=== PATIENT | female | born 1975 | race Caucasian/White ===

== ENCOUNTER 2021-11-10 10:23 | Outpatient (CLI) | payer OTHER | END 2021-11-10 10:25 | disposition home or self-care (01) | LOC: NUCLEAR 10:23 | PROVIDERS: ATTEND Podiatrist | DX: M84.374A Stress fracture, right foot, initial encounter for fracture (principal) | CPT/HCPCS: 78315; A9503 ==

== ENCOUNTER 2022-01-12 13:42 | Outpatient (CLI) | payer OTHER | END 2022-01-12 13:56 | disposition home or self-care (01) | LOC: RAD 13:42 | PROVIDERS: ATTEND Podiatrist | DX: M84.37 Stress fracture, ankle, foot and toes (principal) ==

== ENCOUNTER 2023-08-30 10:59 | Outpatient (CLI) | payer OTHER | END 2023-08-30 11:06 | disposition home or self-care (01) | LOC: RAD 10:59 | PROVIDERS: ATTEND Physical Medicine & Rehabilitation | DX: M77.31 Calcaneal spur, right foot (principal) ==

== ENCOUNTER 2024-12-25 07:11 | Outpatient (CLI) | payer OTHER | END 2024-12-25 07:23 | disposition home or self-care (01) | LOC: TOM 07:11 | PROVIDERS: ATTEND Internal Medicine Gastroenterology | DX: Z12.11 Encounter for screening for malignant neoplasm of colon (principal) ==